=== PATIENT | male | born 1960 | race Caucasian/White ===

== ENCOUNTER → 2017-03-26 | Outpatient (CLI) | payer BC ==
[~2017-03-26] MED LIST: BUPR-83 PO; CIPR-255 PO; LISI-725 PO; OPTIRAY 320 IV PRN; PRLSR20 PO
--- NOTE | 2017-03-26 16:57 | DIAGNOSTIC IMAGING REPORT ---
CT NECK WITH INTRAVENOUS CONTRAST HISTORY: Right-sided neck pain. MASS ON RIGHT SIDE OF NECK TECHNIQUE: Multiaxial CT images of the neck were performed following the use of intravenous contrast. COMPARISON STUDY: Sinus CT 11/24/2010. FINDINGS: There is a skin marker seen along the right side of the neck. Deep to the skin marker is the right parotid gland and a 10 x 6 mm intraparotid lymph node. This lymph node demonstrates a normal cortex and a normal fatty hilum and does not appear to be pathologic. The anterior half of the right parotid gland demonstrates slight increased density. However, this is identical to the 2011 study and is therefore considered to be benign. No surrounding inflammatory changes at this time. The submandibular glands are symmetric. No significant cervical lymphadenopathy. The visualized lungs are clear. No suspicious lytic or blastic osseous lesions. Degenerative changes seen within the cervical spine. The visualized paranasal sinuses and mastoid air cells are clear. The visualized brain parenchyma and orbits are unremarkable. The major mucosal airway surfaces are intact. The epiglottis and prevertebral soft tissues are normal in thickness. The thyroid gland enhances normally. The carotid arteries, vertebral arteries, and internal jugular veins are patent. IMPRESSION: 1. No significant lymphadenopathy or masses identified within the neck. 2. There is a right neck skin marker. Deep to the skin marker is the right parotid gland which appears stable compared to a [address] There is also a nonpathologic right intraparotid lymph node at this location. Electronically signed by: José Luis Sharma M.D. 03/26/2017 4:55 PM Dictated Date/Time: 03/26/2017 4:45 PM
== END | disposition home or self-care (01) ==
LOC: C.CTS 15:57
DX: R22.1 Localized swelling, mass and lump, neck (principal)

== ENCOUNTER → 2017-08-08 | Outpatient (CLI) | payer BC ==
[~2017-08-08] MED LIST changes: +LISI20TA3 PO; -OPTIRAY 320 IV PRN
[2017-08-08 16:37] LABS: BASO % 0.3 %; BASO ABS # 0.02 K/uL (0-0.2); EOS % 4.2 %; EOS ABS # 0.33 K/uL (0-0.5); HEMATOCRIT 44.4 % (42-52); HEMOGLOBIN 16.5 g/dL (14.0-18.0); IG# 0.02 K/uL (0.00-0.02); LYMPH ABS # 2.26 K/uL (1.2-3.4); MEAN CELL VOLUME 83.6 fL (80-100); MEAN CORPUSCULAR HEMOGLOBIN 31.1 pg (25-34); MEAN CORPUSCULAR HGB CONC 37.2 g/dl (32-36); MEAN PLATELET VOLUME 11.1 fL (7.4-10.4); MONO % 5.5 %; MONO ABS # 0.43 K/uL (0.11-0.59); NEUT % 60.7 %; NEUT ABS # 4.73 K/uL (1.4-6.5); PLATELET COUNT 163 K/uL (130-400); RED CELL DISTRIBUTION WIDTH CV 13.3 % (11.5-14.5); RED CELL DISTRIBUTION WIDTH SD 40.3 fL (36.4-46.3); WHITE BLOOD COUNT 7.79 K/uL (4.8-10.8)
[2017-08-08 16:47] LABS: PTT PATIENT 25.3 SECONDS (21.0-31.0)
[2017-08-08 16:59] LABS: POTASSIUM 3.8 mmol/L (3.5-5.1)
== END | disposition home or self-care (01) ==
LOC: C.CPL 16:07
DX: Z01.818 Encounter for other preprocedural examination (principal)

== ENCOUNTER → 2017-08-23 | Day surgery (SDC) | payer BC ==
[2017-08-08 11:50] VITALS: Ht 188 cm; Wt 129.6 kg
[~2017-08-23] VITALS: Ht 188 cm; Wt 129.6 kg
[~2017-08-23] MED LIST changes: +ATROPINE SULFATE 0.1 MG/ML 5ML SYR IV PRN; -BUPR-83 PO; +CEFAZOLIN 3000MG IV PUSH 22.5 ML IV SCH; -CIPR-255 PO; +EpHEDrine SULFATE INJ 50 MG/ML AMP IV PRN; +EpINEphrine INJ 1MG/ML AMP 1 MG/ML AMP ONE; +FENTANYL CITRATE INJ 50 MCG/1 ML 2 ML VIAL IV PRN; +FENTANYL CITRATE INJ 50 MCG/1 ML 2 ML VIAL ONE; +HYDROCODONE/ACETAMIN 5/325MG TAB PO PRN; +LIDOCAINE 4% MPF SOAK 5 ML = 1 DOSE TOP ONE; +LIDOCAINE HCL 2% 2 ML VIAL (20MG/ML) ONE; +LIDOCAINE HCL 4% TOP 50 ML VIAL EXT ONE; +LIDOCAINE/EPINEPHRINE 1% 20 ML VIAL ONE; -LISI-725 PO; +MIDAZOLAM HCL 1 MG/ML 2ML VIAL ONE; +ONDANSETRON INJ 2 MG/ML 2 ML VIAL IV PRN; +ONDANSETRON INJ 2 MG/ML 2 ML VIAL ONE; +OXYMETAZOLINE HCL 0.05% NA SPR 15 ML BTL PRN; +OXYMETAZOLINE HCL 0.05% NA SPR 15 ML BTL SCH; +PROPOFOL IV EMULSION 10 MG/ML 20 ML VIAL IV ONE; +ROCURONIUM BROMIDE 10 MG/ML 5 ML VIAL IV ONE; +SUCCINYLCHOLINE CHLORIDE 20 MG/ML 10 ML VIAL IV ONE
--- NOTE | 2017-08-23 11:17 | History & Physical Bridge - [place] ---
H&P Re-Evaluation Bridge Note: I have examined the patient, reviewed the History & Physical and in the interval since the performance of the History & Physical I have noted the following changes of clinical significance: No changes noted
--- NOTE | 2017-08-23 12:24 | [facility] Operative Report ---
Operative Report Operative Date Aug 23, 2017. Pre-Operative Diagnosis Acquired deviated nasal septum Hypertrophy of nasal turbinates Post-Operative Diagnosis same as above Procedure(s) Performed Revision Septoplasty And Bilateral Inferior Turbinate Reduction Surgeon Dr. Mullen Call Circuit Worker Surgeon(s) None Estimated Blood Loss 50ML Findings 1. MODERATE L DNS 2. R>L ITH Specimens None Anesthesia Type General I attest to the content of the Intraoperative Record and any orders documented therein. Any exceptions are noted below.
--- NOTE | 2017-08-23 12:27 | Discharge Instructions ---
Discharge Instructions Date of Service Aug 23, 2017. Admission Reason for Admission: Acquited Deviated Nasal Septum, Hypertrophy Nasal Discharge Discharge Diagnosis / Problem: SAME Discharge Goals Goal(s): Therapeutic intervention Activity Recommendations Activity Limitations: as noted below 1. LIGHT ACTIVITY AND NO NOSE BLOWING FOR 2 WEEKS 2. NO DRIVING WHILE ON NORCO . Current Hospital Diet Patient's current hospital diet: Discharge Diet Recommended Diet: Regular Diet Procedures Procedures Performed: Revision Septoplasty And Bilateral Inferior Turbinate Reduction Pending Studies Studies pending at discharge: no Medical Emergencies . Who to Call and When: Medical Emergencies: If at any time you feel your situation is an emergency, please call 911 immediately. . Non-Emergent Contact Non-Emergency issues call your: Surgeon . . "Provider Documentation" section prepared by Marcos Mullen. .
--- NOTE | 2017-08-23 12:59 | Anesthesia Progress Nt - [facility] ---
Anesthesia Post Op Note Date & Time Aug 23, 2017 at 12:59 Vital Signs Pain Intensity: 0 Vital Signs Past 12 Hours Date Time Temp Pulse Resp B/P (MAP) Pulse Ox O2 Delivery O2 Flow Rate FiO2 08/23/17 12:31 90 13 08/23/17 12:31 90 13 124/90 98 08/23/17 12:28 36.4 95 14 144/91 97 Humidified Oxygen 6 Mask 08/23/17 12:27 144/91 08/23/17 09:43 36.9 84 18 111/69 (83) 94 Room Air Notes Mental Status: alert / awake / arousable, participated in evaluation Pt Amnestic to Procedure: Yes Nausea / Vomiting: adequately controlled Pain: adequately controlled Airway Patency, RR, SpO2: stable & adequate BP & HR: stable & adequate Hydration State: stable & adequate Anesthetic Complications: no major complications apparent
[2017-08-23 13:08] VITALS: TEMP 36.4
[2017-08-23 13:42] VITALS: BP 132/88; PULSE 80; O2SAT 96
--- NOTE | 2017-08-23 14:29 | OPERATIVE REPORT ---
DATE OF OPERATION: 08/23/2017 PREOPERATIVE DIAGNOSES: 1. Left septal deviation, status post previous septoplasty by another lead sprinkler. 2. Right greater than left inferior turbinate hypertrophy. POSTOPERATIVE DIAGNOSES: 1. Left septal deviation, status post previous septoplasty by another lead sprinkler. 2. Right greater than left inferior turbinate hypertrophy. PROCEDURES: 1. Revision septoplasty. 2. Bilateral inferior turbinate outfracture and turbinoplasty. SURGEON: Dr. Mullen. ANESTHESIA: General endotracheal. ESTIMATED BLOOD LOSS: 50 mL FINDINGS: 1. Moderately severe left septal deviation with very thin mucosa overlying the anterior and mid septum. 2. Right greater than left inferior turbinate hypertrophy. SPECIMENS: None. COMPLICATIONS: None. INDICATIONS FOR THE PROCEDURE: The patient is a 56-year-old male who has undergone septoplasty in the past by Dr. Jessica in 1990. He has continued to have problems with left nasal airway obstruction ever since and has extensive crusting that develops within the left nasal cavity that he has to manually extract in order to have an adequate nasal airway. He was given mupirocin ointment and nasal saline irrigations to try to relieve his symptomatology, but unfortunately this did not help him. He presents for the above-mentioned procedures on an outpatient elective basis. DESCRIPTION OF PROCEDURE: After informed consent had been obtained from the patient, the patient was wheeled to the operating room and placed on the operating table in the supine position. Monitors were placed. After induction of general endotracheal anesthesia, the patient was prepped in the usual fashion for septoplasty. Lidocaine and epinephrine pledgets were placed in the bilateral nasal cavities and pressure applied. The pledgets were then removed. The nasal septum was then injected with 1% lidocaine with 1:100,000 epinephrine. Lidocaine and epinephrine pledgets were then placed in the bilateral nasal cavities and pressure applied. The pledgets were removed. A #15 scalpel was used to make a left hemitransfixion incision through which the left-sided mucoperichondrial and mucoperiosteal flap was elevated. Of note, the patient had a very thin mucosa overlying the left anterior and mid septum. Care was taken not to develop any tears in the mucoperichondrial and mucoperiosteal flap. A #15 scalpel was then used to incise the quadrangular cartilage with care to preserve a 1.5-cm dorsal and caudal strut and in the right side, the mucoperichondrial and mucoperiosteal flap was elevated through this cartilaginous incision. 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 Careful dissection of this duplicate cartilage was undertaken so that in order to not tear the mucoperichondrial and mucoperiosteal flaps. A Jason swivel knife was then used to remove the deviated portions of the quadrangular cartilage including the stacked cartilage that was in the mid septal region. Medardo forceps was used to remove the bony septal spur more posteriorly. This resulted in the septum being more midline. The septal cavity was then suctioned. The left hemitransfixion incision was closed with several simple interrupted 4-0 chromic sutures. A 4-0 plain gut suture and a Zaid needle was then used to perform a quilting stitch of the mucoperichondrial and mucoperiosteal flaps bilaterally to help prevent septal hematoma. A Ye elevator was then used to infracture and subsequently outfracture the inferior turbinates bilaterally. The inferior turbinates were injected with 1% lidocaine with 1:100,000 epinephrine. A 2.0 mm turbinate blade using powered instrumentation was then used to perform bilateral inferior turbinoplasties in a submucosal fashion. The nasal cavity and nasopharynx were then suctioned. An orogastric tube was placed and the stomach was suctioned free of any stomach contents. This marked the end of the case. The patient tolerated the procedure well and there were no apparent complications. All the instrumentation was removed from the patient. The patient was extubated and transferred to the recovery room in stable condition. I attest to the content of the Intraoperative Record and any orders documented therein. Any exception s are noted below.
== END | disposition home or self-care (01) ==
LOC: X.SURG 09:21
DX: J34.2 Deviated nasal septum (principal); J34.3 Hypertrophy of nasal turbinates; I10 Essential (primary) hypertension; G47.33 Obstructive sleep apnea (adult) (pediatric); Z99.89 Dependence on other enabling machines and devices; Z83.3 Family history of diabetes mellitus; Z82.49 Family history of ischemic heart disease and other diseases of the circulatory system